=== PATIENT | female | born 2000 | race Native Hawaiian/Other Pacific Islander ===

== ENCOUNTER 2022-07-10 09:43 | Outpatient (CLI) | payer OTHER, SELFPAY ==
[2022-07-10 13:01] LABS: Cholesterol* 148 mg/dL (90-199); Glucose* 104 mg/dL (60-115); HDL Cholesterol* 41 mg/dL (>=50); LDL Cholesterol Calculated 82 mg/dL (<100); Triglycerides* 125 mg/dL (40-149)
[2022-07-10 14:49] LABS: Chlamydia DNA Amplified* NOT DETECTED (No Detected); GC DNA Amplified* NOT DETECTED (No Detected)
[2022-07-12 03:01] LABS: Estradiol Premenol Female 43 pg/mL
[2022-07-12 03:52] LABS: Follicle Stimulating Hormone 8.2 IU/L
[2022-07-12 03:53] LABS: Sex Hormone Binding Globulin 19 nmol/L (25-122); Testosterone, Adult Male 21 ng/dL; Testosterone, Free Calculation 5 pg/mL; Testosterone, Percentage Free 2.1 %
[2022-07-12 11:50] LABS: Prolactin 7.3 ng/mL (2.8-29.2)
== END 2022-07-10 09:44 | disposition home or self-care (01) ==
PROVIDERS: PCP Advanced Practice Midwife; Visit Provider Registered Nurse
DX: Z01.419 Encounter for gynecological examination (general) (routine) without abnormal findings (principal); N91.1 Secondary amenorrhea; Z11.3 Encounter for screening for infections with a predominantly sexual mode of transmission; Z13.6 Encounter for screening for cardiovascular disorders; Z13.1 Encounter for screening for diabetes mellitus
CPT/HCPCS: 80061; 82670; 82947; 83001; 83498; 84146; 84270; 84402; 84403; 84443; 87491; 87591